=== PATIENT | male | born 1965 | race Caucasian/White ===

== ENCOUNTER 2025-01-02 01:15 | Emergency (ER) | payer OTHER, SELFPAY ==
[2025-01-02 01:19] VITALS: BP 124/67; BMI 33.0
[2025-01-02 01:43] LABS: % Basophils 0.2 % (0-2); % Eosinophils 2.2 % (0-6); % Immature Granulocytes 0.4 % (0-0.5); % Lymphocytes 16.5 % (20.5-51.1); % Monocytes 6.5 % (1.7-9.3); % Neutrophils 74.2 % (42.2-75.2); Absolute Eosinophils 0.2 10^3/uL (0-0.7); Absolute Lymphocytes 1.8 10^3/uL (1.2-3.4); Absolute Monocytes 0.7 10^3/uL (0.1-0.6); Hematocrit 39.2 % (39.0-52.0); Hemoglobin 14.1 g/dL (13.0-18.0); Mean Corpuscular Hgb 33.3 pg (27.0-31.0); Mean Corpuscular Volume 92.5 fL (80.0-94.0); Mean Platelet Volume 9.3 fL (7.4-10.4); Nucleated Red Blood Cells % 0 % (-); Platelet Count 352 10^3/uL (130-400); Red Blood Cell Count 4.24 10^6/uL (4.70-6.10); Red Cell Dist. Width 12.3 % (11.5-14.5); White Blood Cell Count 10.8 10^3/uL (4.8-10.8)
[2025-01-02 01:56] LABS: ALT (SGPT) 28 U/L (0-50); AST (SGOT) 28 U/L (17-59); Alkaline Phosphatase 54 U/L (38-126); Blood Urea Nitrogen 26 mg/dl (9-20); Calcium 9.3 mg/dl (8.4-10.2); Carbon Dioxide 16 mmol/L (22-30); Chloride 103 mmol/L (98-107); Estimated Creatinine Clearance 118 ml/min; Glucose 197 mg/dl (70-99); Potassium 3.6 mmol/L (3.5-5.1); Sodium 137 mmol/L (135-145); Total Protein 7.5 g/dl (6.3-8.2); eGFR > 60.00
[2025-01-02 02:00] VITALS: BP 134/97
[2025-01-02] MEDS: ANTIVERT 25 MG PO (02:02)
--- NOTE | 2025-01-02 02:38 | ED.GENMED ---
History of Present Illness
General
Chief Complaint: Dizziness
Source: patient
Exam Limitations: none
Time Seen by Provider: 01/02/25 01:38
History of Present Illness
History of Present Illness:
59-year-old male presents with sudden onset of room spinning sensation with nausea and vomiting. He got up out of bed to go to the bathroom when he developed the symptoms. There was no headache or vision change. There was no slurred speech
unilateral numbness or weakness. He has no chest pain nor shortness of breath. He was given Zofran en route by EMS. He denies double vision blurry vision or loss of vision.
Past History
Past History
ED Past Medical History: None
ED Past Surgical History: None
Social History
Tobacco: Non-smoker
Alcohol: Occasional
Personal:
Living: with family
Employment: Employed
Family History
Family History: Other (Noncontributory)
Phy Exam
Physical Exam
Physical Exam:
General: Uncomfortable appearing male no acute respiratory distress
HEENT: Normocephalic atraumatic pupils equal round reactive to light
Neurologic exam: Horizontally beating nystagmus upon extraocular motion testing. No facial asymmetry no drift finger-nose [id number] intact good strength no dysarthria or aphasia.
[place] positive for reproducing dizziness more so when he turns to the left
Heart: Regular rate and rhythm
Lungs: Clear no wheeze
Course
Orders/Labs/Results
Orders:
Orders
01/02/25 01:31
CMP [Comprehensive Metabolic Panel] Urgent
Complete Blood Count/With Diff Urgent
01/02/25 01:49
Meclizine [Antivert] 25 mg PO NOW STA
01/02/25 02:53
[id number] [Valium Injection] 2 mg IV NOW STA
Abnormal Lab Results
01/02/25
01:31
RBC 4.24 L 10^6/uL
(4.70-6.10)
MCH 33.3 H pg
(27.0-31.0)
Absolute Neuts (auto) 8.0 H 10^3/uL
(1.4-6.5)
Absolute Monos (auto) 0.7 H 10^3/uL
(0.1-0.6)
Lymphocytes % 16.5 L %
(20.5-51.1)
Carbon Dioxide 16 L mmol/L
(22-30)
BUN 26 H mg/dl
(9-20)
Glucose 197 H mg/dl
(70-99)
01/02/25 01:31
01/02/25 01:31
Vital Signs
Initial and Last Documented VS:
Initial Vital Signs
Pulse Resp BP Pulse Ox
66 18 124/67 100
01/02/25 01:19 01/02/25 01:19 01/02/25 01:19 01/02/25 01:19
Last Documented Vital Signs
Pulse Resp BP Pulse Ox
66 18 124/67 100
01/02/25 01:19 01/02/25 01:19 01/02/25 01:19 01/02/25 01:19
MDM/Problems Addressed
Differential Diagnosis Includes:
Dizziness. Differential could include arrhythmia versus vertigo versus stroke. No other signs suggestive of stroke or TIA. The symptoms are reproducible and fatigable on exam. There is no ataxia on exam. Do not suspect stroke. Considered
imaging but not indicated. Treated with Zofran and root fluids here and meclizine.
Update Note
Update Note:
Patient feeling improved after meclizine and fluids and Zofran. Patient tried to stand up and it was still quite dizzy. Will try Valium
ED Attending Note
-
Portions of this chart may have been created with voice recognition software.� Occasional wrong word or��sound alike� substitutions may have occurred due to the inherent limitations of voice recognition software.
Discharge Plan
Departure
Discharge Problem:
Vertigo
Instructions: Vertigo (a type of dizziness)
Prescriptions:
New
meclizine 25 mg tablet
25 mg PO TID PRN (Reason: dizziness) Qty: 10 0RF
Referrals:
Palomo Gonzalez MD [Family Provider] -
Activity Restrictions/Additional Instructions:
Stay hydrated. Use meclizine as needed. Follow-up with family doctor. Return if worse otherwise
Interventions
Interventions:
*Risk Screen - Suicide Last Done: 01/02/25 01:19
*General Assessment Last Done: 01/02/25 01:19
*Neglect/Abuse Screening Last Done: 01/02/25 01:19
ED- Fall Risk Assessment Last Done: 01/02/25 01:19
*ED COVID-19 Vaccine History Last Done: 01/02/25 01:19
ED- Neurological Assessment Last Done: 01/02/25 01:19
ED- Cardiac Assessment Last Done: 01/02/25 01:19
ED Swallowing Screen Last Done: 01/02/25 01:28
Discharge Date and Time
Print Language: GREEK
[2025-01-02 03:00] VITALS: BP 142/94
[2025-01-02] MEDS: VALIUM INJECTION 2 MG IV (03:07)
[2025-01-02 04:00] VITALS: BP 136/76
== END 2025-01-02 04:45 | disposition home or self-care (01) ==
LOC: EMR 01:15
PROVIDERS: Emergency Medicine; EMERGENCY PHYSICIAN Emergency Medicine; FAMILY PHYSICIAN Internal Medicine
DX: R42 Dizziness and giddiness (principal); R11.2 Nausea with vomiting, unspecified
CPT/HCPCS: 99284; 96374; 80053; 85025